=== PATIENT | male | born 1995 | race American Indian/Alaskan Native ===

== ENCOUNTER 2018-06-27 15:38 | Emergency (ER) | payer OTHER ==
[2018-06-27 15:54] VITALS: BP 138/72
--- NOTE | 2018-06-27 15:56 | Emergency Department Report ---
Chief Complaint: Abdominal Pain Stated Complaint: ABD PAIN Time Seen by Provider: 06/27/18 15:53 - HPI History of Present Illness: This is a 23 y.o. male that presents with abdominal pain for 3 months. Patient aunt asked to be checked for H. pylori. - Exam Vital Signs: Vital Signs 06/27/18 15:53 Temperature 97.4 F L Pulse Rate 94 H Respiratory 18 Rate Blood Pressure 138/72 O2 Sat by Pulse 99 Oximetry MSE screening note: Focused history and physical exam performed. Due to findings the following was ordered: Labs [facility] for further evaluation. ED Disposition for MSE Condition: Stable
[2018-06-27 16:40] LABS: Basophils # (Auto) 0.1 K/mm3 (0.0-0.1); Basophils % (Auto) 1.1 % (0.0-1.8); Eosinophils # (Auto) 0.3 K/mm3 (0.0-0.4); Eosinophils % (Auto) 4.7 % (0.0-4.3); Hematocrit 48.1 % (35.5-45.6); Hemoglobin 16.2 gm/dl (11.8-15.2); Lymphocytes # (Auto) 1.8 K/mm3 (1.2-5.4); Lymphocytes % (Auto) 25.7 % (13.4-35.0); Mean Corpuscular HGB Conc 34 % (32-34); Mean Corpuscular Hemoglobin 29 pg (28-32); Mean Corpuscular Volume 86 fl (84-94); Monocytes # (Auto) 0.5 K/mm3 (0.0-0.8); Monocytes % (Auto) 6.9 % (0.0-7.3); Platelet Count 271 K/mm3 (140-440); Red Blood Count 5.61 M/mm3 (3.65-5.03); Red Cell Distribution Width 13.3 % (13.2-15.2)
[2018-06-27 17:12] LABS: Alanine Aminotransferase 12 units/L (7-56); Albumin 4.6 g/dL (3.9-5); BUN/Creatinine Ratio 12; Blood Urea Nitrogen 12 mg/dL (9-20); Calcium 9.7 mg/dL (8.4-10.2); Hemolysis Index 11; Lipase 57 units/L (13-60)
--- NOTE | 2018-06-27 17:17 | Emergency Department Report ---
ED Abdominal Pain HPI - General Chief Complaint: Abdominal Pain Stated Complaint: ABD PAIN Time Seen by Provider: 06/27/18 15:53 Source: patient Mode of arrival: Ambulatory Limitations: No Limitations - History of Present Illness Initial Comments: 23-year-old male presents to the emergency room for epigastric abdominal pain for 3 months. Patient reports that he was seen here 02/14/2018. Patient reports at that time with a negative CT. Patient was also reports that he was seen at [facility] 2 weeks ago and had a scan showed no abnormalities. Patient reports that pain is worse when he is hungry is located epigastric to the back. Patient had never followed up with a institution librarian. Reports he last had a BM 4 days ago denies any vomiting no nausea. Negative past medical history malaria at the age of [age]. Patient has no other medical history. MD Complaint: abdominal pain -: month(s) (3) Location: epigastric Radiation: back Migration to: no migration Severity scale (0 -10): 6 Quality: sharp Consistency: constant Improves With: nothing Worsens With: eating Associated Symptoms: denies: nausea, vomiting, diarrhea, constipation - Related Data Previous Rx's Medication Instructions Recorded Last Taken Type Famotidine [Pepcid] 20 mg PO BID #20 tablet 06/27/18 Unknown Rx Allergies Allergy/AdvReac Type Severity Reaction Status Date / Time No Known Allergies Allergy Verified 06/27/18 15:40 ED Review of Systems ROS: Stated complaint: ABD PAIN Other details as noted in HPI Comment: All other systems reviewed and negative Gastrointestinal: abdominal pain. denies: nausea, vomiting ED Past Medical Hx - Past Medical History Additional medical history: Malaria (age [age]yrs) - Social History Smoking Status: Never Smoker Substance Use Type: None - Medications Home Medications: Home Medications Medication Instructions Recorded Confirmed Last Taken Type Famotidine [Pepcid] 20 mg PO BID #20 tablet 06/27/18 Unknown Rx ED Physical Exam - General Limitations: No Limitations General appearance: alert, in no apparent distress - Eye Eye exam: Present: PERRL, EOMI - ENT ENT exam: Present: mucous membranes moist - GI/Abdominal GI/Abdominal exam: Present: soft, normal bowel sounds - Psychiatric Psychiatric exam: Present: normal affect, normal mood - Skin Skin exam: Present: warm, dry, intact, normal color. Absent: rash ED Course Vital Signs 06/27/18 15:53 Temperature 97.4 F L Pulse Rate 94 H Respiratory 18 Rate Blood Pressure 138/72 O2 Sat by Pulse 99 Oximetry ED Medical Decision Making - Lab Data Result diagrams: 06/27/18 16:22 06/27/18 16:22 - Medical Decision Making Patient has been evaluated by this provider a CBC. Discussed with patient that he needs to follow-up with the institution librarian. We'll place patient on Pepcid 20 mg daily and refer him to 2 institution librarian for his convenience. Critical care attestation.: If time is entered above; I have spent that time in minutes in the direct care of this critically ill patient, excluding procedure time. ED Disposition Clinical Impression: Abdominal pain, chronic, epigastric Disposition: DC-01 TO HOME OR SELFCARE Is pt being admited?: No Does the pt Need Aspirin: No Condition: Stable Instructions: Abdominal Pain (ED) Additional Instructions: Please take an acid as prescribed. Follow up with the institution librarian. I have listed to below for your convenience. Prescriptions: Famotidine [Pepcid] 20 mg PO BID #20 tablet Referrals: NISHANT CALVIN MD [Primary Care Provider] - 3-5 Days [facility] [Provider Group] - 3-5 Days [facility] [Provider Group] - 3-5 Days
[2018-06-27 17:44] LABS: Bilirubin,Urine NEG (Negative); Color,Urine Straw (Yellow)
[2018-06-27 17:45] LABS: Blood,Urine NEG (Negative); Protein,Urine <15 mg/dL mg/dL (Negative); RBC,Urine < 1.0 /HPF (0.0-6.0); Urobilinogen,Urine < 2.0 mg/dL (<2.0)
[2018-06-27 18:02] LABS: WBC,Urine < 1.0 /HPF (0.0-6.0)
== END 2018-06-27 17:53 | disposition home or self-care (01) ==
LOC: ED 15:38
DX: R10.13 Epigastric pain (principal); G89.29 Other chronic pain
CPT/HCPCS: 36415; 80053; 81001; 83690; 85025

== ENCOUNTER 2018-09-15 20:13 | Emergency (ER) | payer OTHER ==
--- NOTE | 2018-09-15 20:25 | Emergency Department Report ---
Blank Doc - Documentation Documentation: This is a 23-year-old male that presents with abdominal pain. Denies any N/V. This initial assessment/diagnostic orders/clinical plan/treatment(s) is/are subject to change based on patient's health status, clinical progression and re- assessment by fellow clinical providers in the ED. Further treatment and workup at subsequent clinical providers discretion. Patient/guardians urged not to elope from the ED as their condition may be serious if not clinically assessed and managed. Initial orders include: 1- Patient sent to [facility] for further evaluation and treatment 2- labs
[2018-09-15 20:50] LABS: Basophils # (Auto) 0.1 K/mm3 (0.0-0.1); Basophils % (Auto) 0.9 % (0.0-1.8); Eosinophils # (Auto) 0.2 K/mm3 (0.0-0.4); Eosinophils % (Auto) 2.7 % (0.0-4.3); Hematocrit 44.8 % (35.5-45.6); Hemoglobin 15.4 gm/dl (11.8-15.2); Lymphocytes # (Auto) 1.9 K/mm3 (1.2-5.4); Lymphocytes % (Auto) 21.6 % (13.4-35.0); Mean Corpuscular HGB Conc 34 % (32-34); Mean Corpuscular Volume 86 fl (84-94); Monocytes # (Auto) 0.5 K/mm3 (0.0-0.8); Monocytes % (Auto) 6.2 % (0.0-7.3); Platelet Count 244 K/mm3 (140-440); Red Cell Distribution Width 13.1 % (13.2-15.2)
[2018-09-15 21:05] LABS: Bilirubin,Urine NEG (Negative); Blood,Urine NEG (Negative); Color,Urine Yellow (Yellow); Mucus,Urine FEW /HPF; Protein,Urine <15 mg/dL mg/dL (Negative); Urobilinogen,Urine < 2.0 mg/dL (<2.0); WBC,Urine < 1.0 /HPF (0.0-6.0)
[2018-09-15 21:14] LABS: Alanine Aminotransferase 14 units/L (7-56); Albumin 4.3 g/dL (3.9-5); BUN/Creatinine Ratio 9; Bilirubin,Direct 0.2 mg/dL (0-0.2); Blood Urea Nitrogen 10 mg/dL (9-20); Calcium 9.1 mg/dL (8.4-10.2); Hemolysis Index 4
--- NOTE | 2018-09-16 00:32 | Emergency Department Report ---
ED Abdominal Pain HPI - General Chief Complaint: Abdominal Pain Stated Complaint: H PYLORI Time Seen by Provider: 09/15/18 20:25 Source: patient Mode of arrival: Ambulatory Limitations: No Limitations - History of Present Illness Initial Comments: This is a 23-year-old -[place] male who presents to the emergency room with diffuse abdominal cramping. Patient states he was diagnosed with H. pylori in June by his primary care doctor at [facility]. He had an EGD study. Patient states he completed medication as prescribed. He reports abdominal cramping after cramping continues. MD Complaint: abdominal pain Onset/Timin -: month(s) Location: diffuse Radiation: none Migration to: no migration Severity: moderate Severity scale (0 -10): 0 Quality: cramping Consistency: intermittent Improves With: nothing Worsens With: eating Associated Symptoms: denies other symptoms Treatments Prior to Arrival: NSAIDs - Related Data Previous Rx's Medication Instructions Recorded Last Taken Type Famotidine [Pepcid] 20 mg PO BID #20 tablet 06/27/18 Unknown Rx Omeprazole 40 mg PO DAILY #30 capsule. 09/16/18 Unknown Rx Allergies Allergy/AdvReac Type Severity Reaction Status Date / Time No Known Allergies Allergy Verified 06/27/18 15:40 ED Review of Systems ROS: Stated complaint: H PYLORI Other details as noted in HPI Constitutional: denies: chills, fever Respiratory: denies: cough, shortness of breath, wheezing Cardiovascular: denies: chest pain, palpitations Gastrointestinal: abdominal pain. denies: nausea, diarrhea Genitourinary: denies: urgency, dysuria Skin: denies: rash, lesions Neurological: denies: headache, weakness, paresthesias Psychiatric: denies: anxiety, depression ED Past Medical Hx - Past Medical History Previous Medical History?: Yes Hx Asthma: Yes Additional medical history: Malaria (age [age]yrs), H-pylori - Surgical History Past Surgical History?: Yes Additional Surgical History: endoscopy, colonoscopy - Social History Smoking Status: Never Smoker - Medications Home Medications: Home Medications Medication Instructions Recorded Confirmed Last Taken Type Famotidine [Pepcid] 20 mg PO BID #20 tablet 06/27/18 Unknown Rx Omeprazole 40 mg PO DAILY #30 capsule. 09/16/18 Unknown Rx ED Physical Exam - General Limitations: No Limitations General appearance: alert, in no apparent distress - Respiratory Respiratory exam: Present: normal lung sounds bilaterally. Absent: respiratory distress - Cardiovascular Cardiovascular Exam: Present: regular rate, normal rhythm. Absent: systolic murmur, diastolic murmur, rubs, gallop - GI/Abdominal GI/Abdominal exam: Present: soft, tenderness (right lower quadrant and left lower quadrant), normal bowel sounds. Absent: distended, guarding, rebound, rigid, organomegaly, mass, bruit, pulsatile mass, hernia - Back Exam Back exam: Absent: CVA tenderness (R), CVA tenderness (L) - Neurological Exam Neurological exam: Present: alert, oriented X3, normal gait - Psychiatric Psychiatric exam: Present: normal affect, normal mood - Skin Skin exam: Present: warm, dry, intact, normal color. Absent: rash ED Course Vital Signs 09/15/18 20:25 Temperature 97.8 F Pulse Rate 80 Respiratory 18 Rate Blood Pressure 124/77 O2 Sat by Pulse 98 Oximetry ED Medical Decision Making - Lab Data Result diagrams: 09/15/18 20:38 09/15/18 20:38 Lab Results 09/15/18 09/15/18 09/15/18 Range/Units 20:38 20:38 20:38 WBC 8.7 (4.5-11.0) K/mm3 RBC 5.20 H (3.65-5.03) M/mm3 Hgb 15.4 H (11.8-15.2) gm/dl Hct 44.8 (35.5-45.6) % MCV 86 (84-94) fl MCH 30 (28-32) pg MCHC 34 (32-34) % RDW 13.1 L (13.2-15.2) % Plt Count 244 (140-440) K/mm3 Lymph % (Auto) 21.6 (13.4-35.0) % [place] % (Auto) 6.2 (0.0-7.3) % Eos % (Auto) 2.7 (0.0-4.3) % Baso % (Auto) 0.9 (0.0-1.8) % Lymph # 1.9 (1.2-5.4) K/mm3 [place] # 0.5 (0.0-0.8) K/mm3 Eos # 0.2 (0.0-0.4) K/mm3 Baso # 0.1 (0.0-0.1) K/mm3 Seg Neutrophils % 68.6 (40.0-70.0) % Seg Neutrophils # 5.9 (1.8-7.7) K/mm3 Sodium 141 (137-145) mmol/L Potassium 3.5 L (3.6-5.0) mmol/L Chloride 101.3 (98-107) mmol/L Carbon Dioxide 28 (22-30) mmol/L Anion Gap 15 mmol/L BUN 10 (9-20) mg/dL Creatinine 1.1 (0.8-1.5) mg/dL Estimated GFR > 60 ml/min BUN/Creatinine Ratio 9 % Glucose 85 (75-100) mg/dL Calcium 9.1 (8.4-10.2) mg/dL Total Bilirubin 1.80 H (0.1-1.2) mg/dL Direct Bilirubin 0.2 (0-0.2) mg/dL Indirect Bilirubin 1.6 mg/dL AST 16 (5-40) units/L ALT 14 (7-56) units/L Alkaline Phosphatase 69 (35-129) units/L Total Protein 7.4 (6.3-8.2) g/dL Albumin 4.3 (3.9-5) g/dL Albumin/Globulin Ratio 1.4 % Lipase 13 (13-60) units/L Urine Color Yellow (Yellow) Urine Turbidity Clear (Clear) Urine pH 8.0 H (5.0-7.0) Ur Specific [place] 1.017 (1.003-1.030) Urine Protein <15 mg/dl (Negative) mg/dL Urine Glucose (UA) Neg (Negative) mg/dL Urine Ketones Tr (Negative) mg/dL Urine Blood Neg (Negative) Urine Nitrite Neg (Negative) Urine Bilirubin Neg (Negative) Urine Urobilinogen < 2.0 (<2.0) mg/dL Ur Leukocyte Esterase Tr (Negative) Urine WBC (Auto) < 1.0 (0.0-6.0) /HPF Urine RBC (Auto) 2.0 (0.0-6.0) /HPF Urine Mucus Few /HPF - Medical Decision Making Patient was examined by me. Vitals are normal and patient is in no acute distress. Obtained labs which were all unremarkable. Ordered CT of abdomen and pelvis which patient refused. Patient recently completed treatment for H. pylori. Mild tenderness to the lower abdomen nonfocal exam. Abdominal cramping after eating may be related to peptic ulcers. Referral to certified registered nurse practitioner for further evaluation. He was instructed to also follow-up with his primary care doctor. Instructed to follow up with PCP at [facility] (formerly [facility] Start omeprazole for gastritis. Plan discussed with patient to discharge home and treat outpatient. He agrees with ER plan. Patient discharged home in stable condition. Follow up with PCP in 2-3 days. Critical care attestation.: If time is entered above; I have spent that time in minutes in the direct care of this critically ill patient, excluding procedure time. ED Disposition Clinical Impression: History of Helicobacter pylori infection Abdominal pain Qualifiers: Abdominal location: lower abdomen, unspecified Qualified Code(s): R10.30 - Lower abdominal pain, unspecified Gastritis Qualifiers: Gastritis type: other gastritis Chronicity: acute Gastritis bleeding: without bleeding Qualified Code(s): K29.00 - Acute gastritis without bleeding Disposition: TO HOME OR SELFCARE Is pt being admited?: No Does the pt Need Aspirin: No Condition: Stable Instructions: Helicobacter Pylori (ED), Gastritis (ED) Additional Instructions: Frequent hand washing is important to reduce spread. Prompt disinfection of contaminated surfaces with household chlorine bleach- based piece marker small arms and washing of soiled clothing and bedding should be advised. If food or water is thought to be contaminated, it should be avoided. Increase fluid intake. Drinks high in sugars such as carbonated soft drinks, fruit juice, and highly sugared liquids should be avoided. Prescriptions: Omeprazole 40 mg PO DAILY #30 capsule. Referrals: MARIS CAN MD [Staff Physician] - 3-5 Days [facility] [Provider Group] - 3-5 Days [facility] [Provider Group] - 3-5 Days Forms: Work/School Release Form(ED) Time of Disposition:
[2018-09-16 01:32] VITALS: BP 118/72
== END 2018-09-16 01:33 | disposition home or self-care (01) ==
LOC: ED 20:13
DX: K29.70 Gastritis, unspecified, without bleeding (principal); J45.909 Unspecified asthma, uncomplicated; Z86.19 Personal history of other infectious and parasitic diseases; Z98.890 Other specified postprocedural states
CPT/HCPCS: 36415; 80048; 80076; 81001; 83690; 85025